=== PATIENT | male | born 1960 | race Caucasian/White ===

== ENCOUNTER 2025-02-05 20:25 | Observation (INO) | payer BC, SELFPAY ==
[2025-02-05] VITALS (16 sets, daily range): BP systolic 92–125; BP diastolic 54–93; BMI 29.3; BMI 29.0
--- NOTE | 2025-02-05 14:49 | ED.GENMED ---
History of Present Illness
General
Chief Complaint: Fainting/Passed Out
Source: patient and family
Exam Limitations: none
Time Seen by Provider: 02/05/25 14:35
History of Present Illness
History of Present Illness:
64yoM with a history of hyperlipidemia, hypothyroidism, and asthma presenting via EMS for evaluation after a syncopal episode less than an hour ago. Patient went to a earlier today. While he was in the buddhist, he started to experience a
generalized chest discomfort with breathing. He went out to lunch at a restaurant after the . He was sitting down and just started to eat when he began to feel weird and felt a numbness sensation throughout his body. He then had a
witnessed syncopal episode. Family states he fell backwards onto the chair and lost consciousness. He was unconscious for about 1 to 2 minutes. No incontinence, seizure-like activity, or postictal period noted. Patient denies any dizziness
currently. He continues to have pleuritic chest discomfort. He admits to being sick for the past several weeks but is starting to feel better.
Phy Exam
General Physical Exam
General Presentation: well appearing and no apparent distress
General age: appears stated age
General Skin: warm and dry
General Habitus: normal
General Mental: alert
ENT Exam
ENT Exam: normocephalic
Cardiovascular Exam
Cardiovascular Exam: no murmur and tachycardia
Pulmonary Exam
Pulmonary Exam: lungs clear, no respiratory distress, no rales, chest non tender, no crackles and no rhonchi
Neurological Exam
Neurological Exam: alert
[place] Coma Scale
Eye Opening: Spontaneous
Verbal Response: Oriented
Motor Response: Obeys Commands
GCS Total Score: 15
Skin Exam
Skin Exam: normal color and warm/dry
Psychiatric Exam
Psychiatric Exam: normal mood/affect
Course
Orders/Labs/Results
Orders:
Orders
02/05/25
CR Chest - 2 Views Urgent
Comment:
Reason For Exam: CP
02/05/25 14:38
Electrocardiogram (*1) Urgent
Reason for Study: Chest Pain
02/05/25 14:39
EKG- Treatment ONCE
02/05/25 14:42
Complete Blood Count/With Diff Urgent
Comprehensive Metabolic Panel Urgent
02/05/25 14:49
Cardiac Monitoring- Treatment ONCE
DDimer [D-Dimer] Urgent
Troponin I Urgent
0.9% Sodium Chloride 1000 ml [Nss] 1,000 ml IV BOLUS
02/05/25 15:27
CT Chest PE Study Urgent
Comment:
Reason For Exam: syncope, pleuritic chest pain
02/05/25 16:13
Electrocardiogram (*1) Urgent
Reason for Study: Syncope
EKG- Treatment ONCE
02/05/25 17:12
CT Head W/o Iv Contrast Urgent
Comment:
Reason For Exam: syncope, head injury
02/05/25 18:33
Troponin I Urgent
02/05/25 19:08
Ketorolac [Toradol] 15 mg IV NOW STA
02/05/25 19:17
Ketorolac [Toradol] 15 mg IV NOW STA
Abnormal Lab Results
02/05/25 02/05/25
14:42 14:49
WBC 14.0 H 10^3/uL
(4.8-10.8)
Abs Immat Gran (auto) 0.1 H 10^3/uL
(0-0.05)
Absolute Neuts (auto) 10.6 H 10^3/uL
(1.4-6.5)
Absolute Monos (auto) 0.8 H 10^3/uL
(0.1-0.6)
Neutrophils % 76.0 H %
(42.2-75.2)
Lymphocytes % 17.2 L %
(20.5-51.1)
D-Dimer 0.54 H ug/mlFEU
(0.00-0.50)
Carbon Dioxide 19 L mmol/L
(22-30)
Glucose 111 H mg/dl
(70-99)
02/05/25 14:42
02/05/25 14:42
Vital Signs
Initial and Last Documented VS:
Initial Vital Signs
Temp Pulse Resp BP Pulse Ox
96.8 F L 85 22 98/74 99
02/05/25 14:30 02/05/25 14:30 02/05/25 14:30 02/05/25 14:30 02/05/25 14:30
Last Documented Vital Signs
Temp Pulse Resp BP Pulse Ox
96.8 F L 114 18 120/93 96
02/05/25 14:30 02/05/25 19:30 02/05/25 19:30 02/05/25 19:30 02/05/25 19:30
MDM/Problems Addressed
Differential Diagnosis Includes:
64yoM here after a syncopal episode. Started with pleuritic chest pain while at a today. He was sitting down eating lunch when he felt weird/numb throughout his body and passed out. C/o ongoing chest pain. BP 98/74. Remainder of vitals are
normal. He is well appearing in no distress. Differential diagnosis includes but is not limited to: Vasovagal episode, arrhythmia, PE, pericarditis, musculoskeletal chest pain
Initial ED plan: Check cardiac labs, D-dimer, EKG, and chest x-ray. IV fluid bolus.
*EKG
Interpreted by ED Provider?: Yes
EKG Intrepretation Date: 02/05/25
Heart Rate: 80
Rate: normal
Rhythm: sinus
[place]: normal axis
Interval: normal interval
QRS Pattern: normal QRS
Ischemia: no ischemia
*Critical Care Note
Total Time (30-74mins, 75-104mins- exclusive of procedures): Not Applicable
Update Note
Update Note:
Labs reveal a leukocytosis with a white count of 14 which is nonspecific. EKG shows normal sinus rhythm without ischemic changes and troponin within normal limits. D-dimer elevated and CTA chest subsequently ordered. CT is negative for pulmonary
embolism but does show a trace pericardial effusion. Family also requesting a head CT which came back normal. Delta troponin/EKG unchanged. HR in the 100-110 range. No telemetry events noted. Patient continues to have ongoing chest pain
throughout ED stay. Patient and family not comfortable with discharge at this time. Will admit for further evaluation and management.
ED Attending Note
-
Portions of this chart may have been created with voice recognition software.� Occasional wrong word or��sound alike� substitutions may have occurred due to the inherent limitations of voice recognition software.
Discharge Plan
Departure
Patient Disposition: Admit
Date of Disposition: 02/05/25
Time of Disposition: 19:20
Presentation/result/management discussed w/ accepting MD/DO: Hospitalist
Discharge Problem:
Syncope, Chest pain
Prescriptions:
No Action
meloxicam 15 mg Tablet
15 mg PO DAILYPRN PRN (Reason: moderate pain)
levothyroxine 150 mcg Tablet
150 mcg PO SUMOTUWETHFR
albuterol sulfate 90 mcg/actuation Hfa Aerosol Inhaler
2 puff INHALATION R Q6HPRN PRN (Reason: sob)
ezetimibe-simvastatin 10-40 mg Tablet
1 tab PO DAILY
fluticasone furoate-vilanterol [Breo Ellipta] 100-25 mcg/dose Blister With Device
1 inh INHALATION R DAILY
Referrals:
Eber Bustamante DO [Family Provider] -
Interventions
Interventions:
*Risk Screen - Suicide Last Done: 02/05/25 15:09
*General Assessment Last Done: 02/05/25 15:09
*Neglect/Abuse Screening Last Done: 02/05/25 15:09
ED- Cardiac Assessment Last Done: 02/05/25 15:09
ED- Neurological Assessment Last Done: 02/05/25 15:09
Discharge Date and Time
Print Language: MAORI
[2025-02-05 15:08] LABS: % Basophils 0.4 % (0-2); % Eosinophils 0.4 % (0-6); % Immature Granulocytes 0.4 % (0-0.5); % Lymphocytes 17.2 % (20.5-51.1); % Monocytes 5.6 % (1.7-9.3); Absolute Basophils 0.1 10^3/uL (0-0.2); Absolute Eosinophils 0.1 10^3/uL (0-0.7); Absolute Immature Granulocytes 0.1 10^3/uL (0-0.05); Absolute Lymphocytes 2.4 10^3/uL (1.2-3.4); Absolute Monocytes 0.8 10^3/uL (0.1-0.6); Absolute Neutrophils 10.6 10^3/uL (1.4-6.5); Hematocrit 43.2 % (39.0-52.0); Hemoglobin 15.1 g/dL (13.0-18.0); Mean Corpuscular Hgb 30.8 pg (27.0-31.0); Mean Platelet Volume 9.5 fL (7.4-10.4); Nucleated Red Blood Cells % 0 % (-); Platelet Count 323 10^3/uL (130-400); Red Blood Cell Count 4.91 10^6/uL (4.70-6.10); Red Cell Dist. Width 11.9 % (11.5-14.5)
[2025-02-05] MEDS: NSS 1000 IV (15:13)
[2025-02-05 15:20] LABS: D-Dimer 0.54 ug/mlFEU (0.00-0.50)
[2025-02-05 15:26] LABS: ALT (SGPT) 32 U/L (0-50); AST (SGOT) 29 U/L (17-59); Albumin 4.4 g/dl (3.5-5.0); Alkaline Phosphatase 104 U/L (38-126); Blood Urea Nitrogen 14 mg/dl (9-20); Calcium 9.5 mg/dl (8.4-10.2); Carbon Dioxide 19 mmol/L (22-30); Chloride 106 mmol/L (98-107); Estimated Creatinine Clearance 86 ml/min; Glucose 111 mg/dl (70-99); Sodium 137 mmol/L (135-145); Total Bilirubin 1.2 mg/dl (0.2-1.3); Total Protein 6.8 g/dl (6.3-8.2); eGFR > 60.00
[2025-02-05 15:36] LABS: Troponin I < 0.012 ng/ml
[2025-02-05 19:05] LABS: Troponin I < 0.012 ng/ml
[2025-02-05] MEDS: TORADOL 15 MG IV (19:22)
--- NOTE | 2025-02-05 19:53 | HPS.HSE ---
Addendum entered and electronically signed by Jignesh Yoder DO 02/05/25 21:29:
Patient seen and examined independently. Agree with findings and plan as set forth by Patricia Morataya PA-C.
Patient is a 64y M with PMH significant for asthma and hypothyroidism who presents to ED for evaluation following syncopal episode. Patient was at a service today and felt a burning and tightness in his chest while at jew. He states
that there was a strong incense odor which he felt attributed to his symptoms. His symptoms persisted once outside of the building and he felt somewhat lightheaded and 'woozy' at the gravesite. At the hotel receptionist, patient sat down with some food and
then passed out. Family was present and he was lowered to the ground and 911 was called. He remembers waking in the ambulance. There was no trauma, injury, etc during the syncopal event.
Patient denies any prior h/o similar symptoms.
In the ED, he continues to complain of burning discomfort in the chest and the throat that occurs with deep inspiration.
Ass:
Syncope
Chest Pain
Pericardial Effusion
Asthma without Acute Exacerbation
Hypothyroidism
Leukocytosis
Plan:
Observe overnight for further evaluation and treatment.
? inhalation injury due to incense that led to symptoms.
Evaluation in the ED thus far is unremarkable.
Troponin undetectable x 2. EKG unremarkable. CTA chest unremarkable.
Monitor on tele for any arrhythmia.
Check Echo.
Cardiology evaluation.
Follow for any new / worsening symptoms.
Original Note:
Family Physician
-
Family Physician: Eber Bustamante
Chief Complaint
-
Chest Pain and Syncope
History of Present Illness
Patient is a 64 y/o male past medical history of asthma, hyperlipidemia and hypothyroidism who presents following a syncopal episode. Patient was attending a today. While at the jew he noted some chest tightness which he attributed the
strong incense. [place] the chest tightness worsened. Finally they arrived at the restaurant. He sat down to start eating when he started to feel tingling sensation across his body and he blacked out. Next thing he remembers
is waking up on the floor. He denies lightheadedness or dizziness prior to the event. Patient continues with chest pain. He reports pain is slight worse when leaning forward, but gets much worse when he tries to lay flat. He reports increased pain
when taking a deep breathing.
Medical History
Past Medical History
Past Medical History: Reports Other
Additional Past Medical History:
Asthma
Hypothyroidism
Hyperlipidemia
Past Surgical History: Reports Other
Additional Past Surgical History:
Hernia Repair
Meniscus
Social History
Tobacco: Non-smoker
Alcohol: Occasional
Family History
Family History: Not pertinent
Allergies / Home Medications
Allergies reflects when Allergies were last updated in [facility].
Home Medications with original date entered in [facility]
Allergy/Medication List:
Allergies
Allergy/AdvReac Type Severity Reaction Status Date / Time
No Known Allergies Allergy Verified 02/05/25 14:29
Home Medications
albuterol sulfate 90 mcg/actuation aerosol inhaler 2 puff inhalation R Q6HPRN PRN sob 02/05/25
ezetimibe 10 mg-simvastatin 40 mg tablet 1 tab PO DAILY 02/05/25
fluticasone furoate 100 mcg-vilanterol 25 mcg/dose inhalation powder (Breo Ellipta) 1 inh inhalation R DAILY 02/05/25
levothyroxine 150 mcg tablet 150 mcg PO SUMOTUWETHFR 02/05/25
meloxicam 15 mg tablet 15 mg PO DAILYPRN PRN moderate pain 02/05/25
Review of Systems
-
A 12 point ROS was completed and negative except as noted: Yes
Constitutional: Denies Fever or Chills
Respiratory: Denies Cough or Trouble Breathing
Cardiac: Reports See HPI
Physical Exam
Vital Signs
Vital Signs
Temp Pulse Resp BP Pulse Ox
96.8 F L 114 18 120/93 96
02/05/25 14:30 02/05/25 19:30 02/05/25 19:30 02/05/25 19:30 02/05/25 19:30
Physical Exam
General: Comfortable and Conversant
HEENT: Anicteric and Moist mucous membranes
Respiratory: Clear and Non Labored Respirations
Cardiac: S1/S2 and Regular Rhythm
GI: Soft and Non Tender
Rectal: Deferred by Provider
Musculoskeletal: No Clubbing, No Cyanosis and No Edema
Skin: Warm and Dry
Neuro: Awake, Alert, Oriented and Nonfocal/grossly intact
Laboratory Results
-
02/05/25 14:42
02/05/25 14:42
Laboratory Results
Total Bilirubin 1.2 mg/dl (0.2-1.3) 02/05/25 14:42
AST 29 U/L (17-59) 02/05/25 14:42
ALT 32 U/L (0-50) 02/05/25 14:42
Alkaline Phosphatase 104 U/L (38-126) 02/05/25 14:42
Troponin I < 0.012 ng/ml 02/05/25 18:33
Data Reviewed
-
Lab Data: Labs Reviewed by me
Impression/Plan
-
Syncope
-Consult Cardiology
-Continue to monitor on Telemetry
-Check Echo
Chest Pain, unclear etiology
-Consult Cardiology
-Check Echo
Pericardial Effusion
-Consult Cardiology
-Check Echo
Asthma, no acute exacerbation
-Continue Breo
Hypothyroidism
-Continue levothyroxine
Hyperlipidemia
-Continue simvastatin/ezetimibe
DVT proph: SCDs
Code Status: Full Code
[2025-02-05 20:32] LABS: Erythrocyte Sed Rate 2 mm/hour (0-20)
[2025-02-05 20:49] LABS: C-Reactive Protein < 5.00 mg/L (0.0-10.00)
[2025-02-05 21:02] LABS: COVID-19 Antigen Negative (Negative)
--- NOTE | 2025-02-06 01:00 | PTCARENOTE ---
Pt walked to bathroom- HR went up to 140s- pt not complaining of any SOB, pain. VS: 111/73, HR 130s. Notified IT SYSTEMS ANALYST CONSULTANT- IVF ordered and started, along with add on labs in the morning
[2025-02-06 01:45] VITALS: BP 103/72
[2025-02-06] MEDS: NSS 1000 IV (02:22)
[2025-02-06 03:36] VITALS: BP 111/73
[2025-02-06 06:24] LABS: Hematocrit 38.4 % (39.0-52.0); Hemoglobin 13.3 g/dL (13.0-18.0); Mean Corp Hgb Conc. 34.6 g/dL (33.0-37.0); Mean Corpuscular Hgb 30.2 pg (27.0-31.0); Mean Corpuscular Volume 87.1 fL (80.0-94.0); Mean Platelet Volume 9.7 fL (7.4-10.4); Platelet Count 264 10^3/uL (130-400); Red Blood Cell Count 4.41 10^6/uL (4.70-6.10); Red Cell Dist. Width 11.7 % (11.5-14.5); White Blood Cell Count 9.9 10^3/uL (4.8-10.8)
[2025-02-06 06:37] LABS: Blood Urea Nitrogen 17 mg/dl (9-20); Calcium 9.1 mg/dl (8.4-10.2); Carbon Dioxide 23 mmol/L (22-30); Chloride 106 mmol/L (98-107); Estimated Creatinine Clearance 96 ml/min; Glucose 124 mg/dl (70-99); Magnesium 2.2 mg/dl (1.6-2.3); Potassium 4.4 mmol/L (3.5-5.1); Sodium 136 mmol/L (135-145); eGFR > 60.00
[2025-02-06] MEDS: SYMBICORT 80/4.5 MCG INHALER 2 PUFF INH (07:22)
[2025-02-06 07:25] LABS: TSH Reflex To Free T4 < 0.02 uIU/ml (0.47-4.68)
[2025-02-06 07:46] VITALS: BP 114/80
[2025-02-06 07:55] LABS: Free T4 1.75 ng/dl (0.78-2.19)
[2025-02-06] MEDS: ZETIA 10 MG PO (08:17)
[2025-02-06] MEDS: PROTONIX 40 MG PO (08:17)
[2025-02-06] MEDS: LIPITOR 20 MG PO (08:17)
--- NOTE | 2025-02-06 09:23 | W.PN.HOSP.TC ---
Today's Communication/Plan
-
Check orthostatics
Cardiology input
Assessment / Plan
Assessment / Plan
Gen-AAOx3, NAD
HEENT-NC, AT, anicteric, clear oral mm
Neck-supple
CV-reg, no M, +S1/S2
Lungs-clear B/L
Abd-soft, NT, ND
Ext-no edema
Musculoskeletal-no cyanosis, clubbing
Skin-warm and dry
Neuro-grossly non-focal
Psych-calm, cooperative
Syncope -history sounds like vasovagal syncope. Check orthostatics.
CT chest negative for pulmonary embolism. Troponins negative.
Cardiology consulted.
Pleuritic chest pain -sounds noncardiac. 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
Lungs are clear, no evidence of asthma exacerbation.
Mild intermittent asthma
Hypothyroidism - continue Synthroid.
Hyperlipidemia
Full code
Dispo -possible discharge today after seen by cardiology. Outpatient follow-up.
Anticipated Discharge: Today
Subjective/Interval History
-
Date of Service: February 06, 2025
Patient seen and examined. Feeling better. Less pleuritic pain.
Objective Data
-
Labs:
Laboratory Results
02/06/25
05:40
WBC 9.9
Hgb 13.3
Hct 38.4 L
Plt Count 264
Sodium 136
Potassium 4.4
Chloride 106
Carbon Dioxide 23
BUN 17
Creatinine 0.8
Glucose 124 H
Calcium 9.1
Vital Signs:
Vital Signs
Temp Pulse Resp BP Pulse Ox
98.7 F 110 18 114/80 96
02/06/25 07:46 02/06/25 07:46 02/06/25 07:46 02/06/25 07:46 02/06/25 07:46
Review of Systems
-
History Source: Patient
All other systems: Reviewed and negative
--- NOTE | 2025-02-06 10:28 | CON.CAR ---
Addendum entered and electronically signed by Joann Kerr DO 02/06/25 15:30:
I saw and examined the patient.
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
Comment: I had the pleasure to meet Dread along with multiple family members in his room 770�5 after he was admitted to [facility] after witnessed syncopal event. Dread has been a relatively healthy 64-year-old gentleman with a history of
mild intermittent asthma, hypothyroidism on replacement therapy and hyperlipidemia. He has no history of hypertension, diabetes, coronary artery disease, cardiomyopathy, thromboembolic disease, or arrhythmia. He has had an upper respiratory
infection with his sinuses over the last several weeks which is improved; he denies antibiotics or steroids. He has not been using dduk-vma-blfxzct decongestants or NSAIDs. He was in this area for a and admits that he had not eaten until
just before this event around noon. At the faith the incense was quite strong causing him to feel unwell with chest tightness but without wheezing. At the restaurant following the he was seated and had a half of a beer and was about to
eat when he had a syncopal event. Prior to the event he felt mildly lightheaded. He denies preceding tachycardia or chest. His daughter who was present at the time of our visit was also present and his event. They deny seizure-like activity or
loss of bowel or bladder. He did not have postevent confusion. He had no injury or head trauma. Workup thus far included EKGs which noted sinus rhythm with no acute ischemia or prolonged intervals, troponin x 2 undetectable less than 0.012,
normal hemoglobin, normal renal function electrolytes, initially had mild leukocytosis which resolved this morning. C-reactive protein and ESR were not elevated. TSH was low at less than 0.02 with normal free T4, 1.75. LFTs within normal limits.
Magnesium was 2.2. BUN/creatinine 14/0.9. Sodium 137, potassium 4. His glucose has been elevated, fasting blood sugar this morning was 124. D-dimer was mildly elevated at 0.[address] chest which was negative for PE or aortic
pathology.There is no pneumonia or pulmonary process. Upper portions of the abdomen were unremarkable. There was a trace pericardial effusion. His chest x-ray was no acute disease. CT of the head showed no acute intracranial abnormality and
visualized paranasal sinuses were clear. COVID and influenza swabs were negative. He does wear an Apple Watch and notices periods of tachycardia particularly with walking; his irregular rhythm notifications were not set up and were set up at
bedside. He does have a history of prior syncope approximately 20 years ago when his was having a tag removed from her eyelid. He is active with regular walking of his 2 dogs without cardiac symptoms. 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 He is currently feeling well and denies lightheadedness, shortness of breath or chest pain. No abdominal pain or cramping. No lower extremity edema or calf pain.
General: No acute distress, AAOX3
Neck: Negative JVD, no carotid bruit
Heart: Regular, Negative S3 positive S1/S2, Negative S4, No murmur
Lungs: CTA b/l, negative wheezes/rales/rhonchi
Abd: Positive BS, NT/ND, neg rebound/rigidity/guarding
Ext: No edema. +2 radial pulses symmetric bilaterally. +2 DP/PT pulses. Calves nontender
Neuro: nonfocal
Plan:
Witnessed syncopal event, unclear etiology but suspect vasovagal in the setting of dehydration
-Telemetry with periods of sinus tachycardia but no atrial fibrillation or atrial tachycardia
-Twelve-lead EKG sinus rhythm with normal intervals and no acute ischemic changes
-Orthostatic vital signs negative
-Lab work unremarkable
-Will start Toprol-XL 12.5 mg nightly
-Arrhythmia monitoring set up on patient's Apple Watch at bedside
-Patient states that is confident that he will be able to be seen by his family physician next week as well as a local carbon furnace operator. My recommendations would be for a 2D echocardiogram, outpatient manager intensive care and possibly a stress test.
Patient and family are also aware that if they have difficulty obtaining cardiac care more locally that they can call our office to arrange testing and follow-up.
-He has agreed in front of multiple family members not to drive until further evaluation has been completed
Hypothyroidism on Synthroid
- TSH is less than 0.02. However he has compensated free T4 of 1.75
-He will follow-up with his primary care physician
Atypical chest discomfort, no current chest pain
-Troponin x 2 negative and EKG without ischemia
-CT of chest was negative for PE. Trivial pericardial effusion with no clinical suggestion of hemodynamically significant effusion, doubt clinical significance
-Plan for outpatient cardiac evaluation to include echocardiogram, manager intensive care and stress test
-ACS warning signs reviewed
Hyperglycemia�recommend outpatient follow-up including hemoglobin A1c
Case discussed with hospitalist.
Nursing will provide patient with hospital records for his physicians
Stable for discharge home
Original Note:
Consultation
Consultation Request
Date/Time Consultation Requested: 02/05/2025
Date/Time Consultation Performed: 02/05/2025
Requesting Provider: Dr. Yoder
Performing Provider: Joy Browning PA-C for Dr. Joann Kerr
Reason for Consultation: Syncope, chest pain
Medical History
-
History of Present Illness:
Patient is a 64-year-old male with past medical history significant for asthma, hypothyroidism and hyperlipidemia who presented to emergency department via EMS 02/05/2025 with syncope and chest pain. Patient reports he was recently dealing with upper
respiratory infection over the last several weeks. Patient was in the area for a and did not have a lot to eat or drink that morning. During services noted intermittent chest discomfort/tightness which he attributed to a strong scent of
incense that the bar captain was using. He went to the cemetery for burial and noted some worsening chest tightness. He then went to a local restaurant and had a half a beer and started to eat his meal when he felt mildly lightheaded associated with
tingling sensation that came over his body followed by a witnessed syncopal event. His family helped lower him to the floor and patient woke up after 1 to 2 minutes. There was no incontinence or seizure-like activity. Patient was brought in by
EMS. Blood pressure was low on arrival. EKG showed sinus rhythm without evidence of ischemia. Troponin was negative x 2. D-dimer was noted to be mildly elevated at 0.54. CT of chest was negative for PE and showed trace pericardial effusion.
Head CT was unremarkable. Patient did have suppressed TSH of less than 0.02 with compensated free T41.75. He was COVID-negative. Patient was noted to have periods of tachycardia during sleep with heart rates in the 110's-120s bpm and he was
provided a bag of normal saline IV fluid.
At time of this evaluation patient feels well. He does note some chest tightness with taking deep breaths. Denies dizziness, lightheadedness, palpitations, orthopnea, PND.
Patient does admit to history of prior syncope several years ago when his was having a tag removed from her eyelid. She had also required sutures and he was presyncopal but did not lose consciousness at that time.
Past medical history:
Asthma
Hypothyroidism
Hyperlipidemia
History of vasovagal syncope
Past Medical History
Past Medical History: Other (See HPI)
Past Surgical History: Orthopedic (Meniscal repair) and Other (Hernia repair)
Social History
Tobacco: Non-Smoker
Alcohol: Occasional
Drug: None
Personal:
Living: With Family
Employment: Retired
Family History
Family History: Reviewed & Not Pertinent
Allergies / Home Medications
Allergy/AdvReac Type Severity Reaction Status Date / Time
No Known Allergies Allergy Verified 02/05/25 14:29
�Medication �Instructions �Recorded �Confirmed �Type
albuterol sulfate 90 mcg/actuation 2 puff inhalation R Q6HPRN PRN sob 02/05/25 02/05/25 History
aerosol inhaler
ezetimibe 10 mg-simvastatin 40 mg 1 tab PO DAILY 02/05/25 02/05/25 History
tablet
fluticasone furoate 100 1 inh inhalation R DAILY 02/05/25 02/05/25 History
mcg-vilanterol 25 mcg/dose
inhalation powder (Breo Ellipta)
levothyroxine 150 mcg tablet 150 mcg PO SUMOTUWETHFR 02/05/25 02/05/25 History
meloxicam 15 mg tablet 15 mg PO DAILYPRN PRN moderate pain 02/05/25 02/05/25 History
Review of Systems
-
History Source: Patient
All other systems: Negative unless noted
Physical Exam
Vital Signs
Temp Pulse Resp BP Pulse Ox
98.7 F 110 18 114/80 96
02/06/25 07:46 02/06/25 07:46 02/06/25 07:46 02/06/25 07:46 02/06/25 07:46
GEN: No distress, awake, Ox3
HEENT: supple, anicteric, mmm
LUNGS: CTA bilaterally, no wheezes/rales
CV: Reg, tachycardic, S1/S2, no murmur, rub or gallop
ABD: soft, BS+, NT/ND
EXT: No edema, clubbing or cyanosis
NEURO: Gross non-focal
SKIN: No rash, warm, dry, pink
Lab Results
02/06/25 05:40
02/06/25 05:40
Troponin I < 0.012 ng/ml 02/05/25 18:33
Impression / Plan
-
PCP: Eber Bustamante
Political Director: None prior to admission
Impression:
Presented 02/05/2025 with syncope and intermittent chest tightness
Tachycardia
Atypical chest discomfort
Hyperthyroidism, TSH less than 0.02
Asthma
Hypothyroidism
Hyperlipidemia
History of vasovagal syncope
Plan:
Presented 02/05/2025 with syncope and intermittent chest tightness
-Patient admitted to poor hydration/oral intake and not eating much in the a.m. prior to going to a
-Noted to be hypotensive in ED. Possibly dehydration related
-Syncope likely vasovagal mediated. Patient reports he has had prior syncopal episodes when his was having a skin tag removed and also when she was getting sutures
-Check orthostatic BP
-Would obtain echocardiogram, if unremarkable likely discharge home
-Would consider outpatient monitor to rule out arrhythmia and trend heart rate
Tachycardia
-Noted to have periods of tachycardia overnight while in bed/sleeping
-Provided 1 L of normal saline IV
-Check echo, would have patient get outpatient manager intensive care to trend heart rate and rule out arrhythmia for syncope
-Possibly related to hyperthyroidism as TSH is less than 0.02. However he has compensated free T4 of 1.75
-Patient currently on Synthroid at 150 mcg 6 days a week. Would consider reduction in dose but will defer to primary service or outpatient physician
Atypical chest discomfort, worse with taking deep breaths, positional
-Troponin x 2 negative and EKG without ischemia
-CT of chest was negative for PE
-Check echocardiogram to rule out effusion
-Patient getting over recent upper respiratory infection may be pleuritic in nature. Could try NSAIDs
-Consider outpatient ischemic evaluation
HPI 02/07/2024:
Patient is a 64-year-old male with past medical history significant for asthma, hypothyroidism and hyperlipidemia who presented to emergency department via EMS 02/05/2025 with syncope and chest pain. Patient reports he was recently dealing with upper
respiratory infection over the last several weeks. Patient was in the area for a and did not have a lot to eat or drink that morning. During services noted intermittent chest discomfort/tightness which he attributed to a strong scent of
incense that the bar captain was using. He went to the cemetery for burial and noted some worsening chest tightness. He then went to a local restaurant and had a half a beer and started to eat his meal when he felt mildly lightheaded associated with
tingling sensation that came over his body followed by a witnessed syncopal event. His family helped lower him to the floor and patient woke up after 1 to 2 minutes. There was no incontinence or seizure-like activity. Patient was brought in by
EMS. Blood pressure was low on arrival. EKG showed sinus rhythm without evidence of ischemia. Troponin was negative x 2. D-dimer was noted to be mildly elevated at 0.54. CT of chest was negative for PE and showed trace pericardial effusion.
Head CT was unremarkable. Patient did have suppressed TSH of less than 0.02 with compensated free T4 1.75. He was COVID-negative. Patient was noted to have periods of tachycardia during sleep with heart rates in the 110's-120s bpm and he was
provided a bag of normal saline IV fluid.
Patient does admit to history of prior syncope several years ago when his was having a tag removed from her eyelid. She had also required sutures and he was presyncopal but did not lose consciousness at that time.
Data Reviewed
-
EKG: Report Reviewed by me, Discussed with Physician and Discussed with Patient
Radiology: Report Reviewed by me, Discussed with Physician and Discussed with Patient
CT Scan: Report Reviewed by me, Discussed with Physician and Discussed with Patient
Labs: Labs Reviewed by me, Discussed with Physician and Discussed with Patient
Old Records: Reviewed
[2025-02-06 11:10] VITALS: BP 116/81; BP 117/82; BP 118/81; PULSE 114; PULSE 116; PULSE 117
[2025-02-06 11:11] VITALS: BP 116/81
--- NOTE | 2025-02-06 13:56 | CM ---
Initial assessment was completed with pt at bedside.
Pt is a 64yr old male admitted on OBS with chest pain and syncope
Pt lives in a split level with 5 segundo and is indep with mobility and ADLs.
Pt has no hx of VN/SNF and has no equipment.
PCP; Eber Bustamante
Pharm; [facility] [address] [place]
PLAN; Home with no needs
[2025-02-06 15:06] VITALS: BP 130/85
--- NOTE | 2025-02-06 15:53 | W.DS.TRANS ---
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
-
Discharge Instructions:
Discharge Diagnosis/Procedures Syncope
Diet Low Cholesterol,Low Fat
Activity As tolerated
Driving Restrictions Not until seen by your Dr
Bathing Restrictions None
Instructions:
Stand-Alone Forms:
Changes to Home Medications: No
Discharge Medications:
DC Medications w/original date entered in [employer]
albuterol sulfate 90 mcg/actuation aerosol inhaler 2 puff inhalation R Q6HPRN PRN sob 02/05/25
ezetimibe 10 mg-simvastatin 40 mg tablet 1 tab PO DAILY 02/05/25
fluticasone furoate 100 mcg-vilanterol 25 mcg/dose inhalation powder (Breo Ellipta) 1 inh inhalation R DAILY 02/05/25
levothyroxine 150 mcg tablet 150 mcg PO SUMOTUWETHFR 02/05/25
meloxicam 15 mg tablet 15 mg PO DAILYPRN PRN moderate pain 02/05/25
atorvastatin 20 mg tablet 20 mg PO DAILY #30 tabs 02/06/25
Home Medication Changes
Pending Results: No
== END 2025-02-06 17:23 | disposition home or self-care (01) ==
LOC: 4 EAST ACU 20:25
PROVIDERS: Nurse Practitioner Family; Physician Assistant; Physician Assistant Medical; ADMITTING PHYSICIAN Hospitalist; ATTENDING PHYSICIAN Hospitalist; EMERGENCY PHYSICIAN Student in an Organized Health Care Education/Training Program; FAMILY PHYSICIAN Internal Medicine; OTHER PHYSICIAN Internal Medicine Cardiovascular Disease
DX: R55 Syncope and collapse (principal); R07.81 Pleurodynia; J45.20 Mild intermittent asthma, uncomplicated; R07.89 Other chest pain; R20.0 Anesthesia of skin; R42 Dizziness and giddiness; R73.9 Hyperglycemia, unspecified; R00.0 Tachycardia, unspecified; R94.31 Abnormal electrocardiogram [ECG] [EKG]; W18.39XA Other fall on same level, initial encounter; Y93.89 Activity, other specified; Y92.511 Restaurant or cafe as the place of occurrence of the external cause; E78.5 Hyperlipidemia, unspecified; E03.9 Hypothyroidism, unspecified; D72.829 Elevated white blood cell count, unspecified; I31.39 Other pericardial effusion (noninflammatory); R20.2 Paresthesia of skin; Z79.890 Hormone replacement therapy; Z79.899 Other long term (current) drug therapy; Z79.51 Long term (current) use of inhaled steroids; Z11.52 Encounter for screening for COVID-19
CPT/HCPCS: 70450; 71046; 71275; 80048; 80053; 83735; 84439; 84443; 84484; 85025; 85027; 85379; 85652; 86140; 87502; 87811; 93005; 94640; 96361; 96374; 99285; G0378; Q9967